=== PATIENT | female | born 1990 | race Caucasian/White ===

== ENCOUNTER 2019-03-15 09:00 | Emergency (ER) | payer MEDICAID ==
[~2019-03-15] VITALS: Ht 160 cm; Wt 72.6 kg
[2019-03-15 09:06] VITALS: BP_SYST 125
[2019-03-15] MEDS ORDERED: KETOROLAC TROMETHAMINE 60 MG/2 ML VIAL IM ONE (09:30)
[2019-03-15 10:10] VITALS: BP_SYST 125
== END 2019-03-15 10:10 | disposition home or self-care (01) ==
LOC: SED 09:00
DX: M54.41 Lumbago with sciatica, right side (principal)
CPT/HCPCS: 72100; 81025; 96372; 99283; J1885